=== PATIENT | male | born 1955 | race African-American/Black ===

== ENCOUNTER → 2020-03-23 | Outpatient (CLI) | payer BC ==
--- NOTE | 2020-03-23 17:57 | Diagnostic Imaging Report ---
Indication: Cough, shortness of breath Technique: 2 views of the chest Comparison: None Findings: Lungs and pleural spaces are clear. The heart size is normal. The bones are unremarkable. No significant interim change. Impression: Negative
== END | disposition home or self-care (01) ==
LOC: RAD 14:34
DX: R05 Cough (principal); R06.02 Shortness of breath; R63.4 Abnormal weight loss; J44.9 Chronic obstructive pulmonary disease, unspecified
CPT/HCPCS: 71046